=== PATIENT | female | born 1960 | race Hispanic/Latino ===

== ENCOUNTER → 2024-08-23 | Outpatient (CLI) | payer OTHER ==
--- NOTE | 2024-08-23 15:43 | HMCIMG ---
CT calcium scoring Clinical Information: SCREENING Comparison: None CT Dose Index (CTDI): 13.30 mGy Dose Length Product (DLP): 186.18 total mGy-cm Findings: Calcium score 0. No identifiable calcification. The CT scan is not a complete chest CT. Covered portion is reviewed for incidental findings. No incidental findings seen. IMPRESSION: Calcium score as above. Calcium score reference stable: 0: No identifiable calcification 1- 10: Minimal identifiable calcification 11-100: Mild calcification 101- 400: Moderate calcification 401 and above: Significant calcification Automated exposure control and adequate statistical iterative reconstructions were utilized as dose reduction techniques.
== END | disposition home or self-care (01) ==
LOC: RAH 14:04
PROVIDERS: ATTEND Internal Medicine Cardiovascular Disease
DX: Z13.6 Encounter for screening for cardiovascular disorders (principal)
CPT/HCPCS: 75571

== ENCOUNTER 2025-02-01 07:27 | Day surgery (SDC) | payer OTHER ==
[2025-01-30 14:12] LABS: IMMATURE GRANULOCYTE ABSOLUTE 0.03 K/uL (0-1); NUCLEATED RED BLOOD CELLS 0.0 % (0.0-0.19); PLATELET COUNT (AUTO) 192 K/uL (130-400); RED BLOOD CELL COUNT(AUTO) 4.28 MIL/uL (4.00-5.50); RED CELL DISTRIBUTION WIDTH 13.7 % (11.0-15.5); WHITE BLOOD COUNT (AUTO) 7.5 K/uL (4.8-10.8)
[2025-01-30 14:19] VITALS: BP 141/57; PULSE 71; RESP 14; TEMP 97.4
[2025-01-30 14:21] LABS: INR 1.02 (0.85-1.15)
--- NOTE | 2025-01-30 14:28 | EKG ---
[facility] Test Date: 2025-01-30 Test Time: 13:59:17 Pat Name: JAVAD HARRISON Department: Patient ID: [facility] [id number] Room: Gender: F Kineseologist: [id number] : 1960 Requested By: MARTHA BACH Order Number: [id number] Reading MD: Miguel Angel Bella Measurements Intervals [place] Rate: 71 P: 41 WV: 159 QRS: 1 QRSD: 85 T: 42 QT: 403 QTc: 437 Interpretive Statements Sinus rhythm Low voltage, precordial leads No previous ECG available for comparison Electronically Signed On 01-31-2025 16:33:31 CDT by Miguel Angel Bella Please click the below link to view image of tracing.
[2025-01-30 14:52] LABS: ASPARTATE AMINOTRANSFERASE 15.0 U/L (10-37); CREATININE 1.1 mg/dL (0.5-1.0); GLOMERULAR FILTR. RATE CALC 56.0 mL/min (>90); GLUCOSE,RANDOM 89.0 mg/dL (70-105); SODIUM SERUM 139.0 mmol/L (136-145); TOTAL PROTEIN, SERUM 8.2 g/dL (6.0-8.3); UREA NITROGEN, BLOOD 58.0 mg/dL (7-18)
[2025-02-01] VITALS (16 sets, daily range): BP systolic 110–128; BP diastolic 45–70; PULSE 71–96; RESP 14–18; TEMP 97–97.6
[~2025-02-01] VITALS: Ht 160 cm; Wt 124.3 kg
[~2025-02-01 07:27] MED LIST: ALLO100T PO; ASPI-1443 PO; CHOL500045 PO; LISI40TA15 PO; MAGN400T53 PO; MV-M1TAB57 PO; PHEN15CA61 PO; ROSU5TAB51 PO
[2025-02-01] MEDS ORDERED: LACTATED RINGERS 1000ML 1,000 ML IV ONE (07:31)
[2025-02-01] MEDS ORDERED: LIDOCAINE PF 100MG/5ML (2%) SYRINGE 5ML ONE (07:52)
[2025-02-01] MEDS ORDERED: MIDAZOLAM HCL 1 MG/ML 2ML VIAL ONE (07:53)
[2025-02-01] MEDS ORDERED: SUGAMMADEX SODIUM 200 MG/2 ML VIAL IV ONE (07:58)
[2025-02-01] MEDS ORDERED: SUCCINYLCHOLINE CHLORIDE 20 MG/ML 10 ML VIAL ONE (08:22)
[2025-02-01] MEDS ORDERED: GLYCOPYRROLATE 0.2 MG/ML 5 ML VIAL ONE (08:49)
[2025-02-01] MEDS ORDERED: INDOCYANINE GREEN 25 MG VIAL IJ ONE (10:20)
--- NOTE | 2025-02-01 11:38 | PN ---
GENERAL SURGERY PROGRESS NOTE Date/Time Patient Seen: [ 02/01/2025 at 11:30 a.m.] Problem List: [ ] Interval History: [Postop day 0. Pain tolerable with p.r.n. medication. ] Physical Examination: GENERAL: [No acute distress.] ABD: [Incisions clean, dry and intact, Dermabond in place Vital Signs (last 8hr) Date Time Temp Pulse Resp B/P (MAP) Pulse Ox O2 Delivery O2 Flow Rate FiO2 02/01/25 07:30 97.3 82 18 123/59 96 Room Air 21 Laboratory: [ ] Hematology Labs: Test 01/30/25 13:55 Range/Units White Blood Count 7.5 4.8-10.8 K/uL Red Blood Count 4.28 4.00-5.50 MIL/uL Hemoglobin 12.7 12.0-16.0 g/dL Hematocrit 39.1 36-48 % Mean Corpuscular Volume 91.4 79-99 fL Mean Corpuscular Hemoglobin 29.7 27.0-33.0 pg Mean Corpuscular Hemoglobin Concent 32.5 32.0-36.0 g/dL Red Cell Distribution Width 13.7 11.0-15.5 % Platelet Count 192 130-400 K/uL Mean Platelet Volume 12.8 H 7.5-10.5 fL Immature Granulocyte % (Auto) 0.4 0-1 % Neutrophils (%) (Auto) 70.8 40.0-77.0 % Lymphocytes (%) (Auto) 20.3 L 21.0-51.0 % Monocytes (%) (Auto) 6.9 3.0-13.0 % Eosinophils (%) (Auto) 1.1 0.0-8.0 % Basophils (%) (Auto) 0.5 0.0-5.0 % Neutrophils # (Auto) 5.3 1.8-7.7 K/uL Lymphocytes # (Auto) 1.5 1.0-4.8 K/uL Monocytes # (Auto) 0.5 0.1-1.0 K/uL Eosinophils # (Auto) 0.08 0.00-0.70 K/uL Basophils # (Auto) 0.04 0.00-0.20 K/uL Absolute Immature Granulocyte (auto 0.03 0-1 K/uL Nucleated Red Blood Cells 0.0 0.0-0.19 % Chemistry Labs: Test 01/30/25 13:55 Range/Units Sodium Level 139 136-145 mmol/L Potassium Level 4.4 3.5-5.1 mmol/L Chloride Level 104 101-111 mmol/L Carbon Dioxide Level 26 21-32 mmol/L Blood Urea Nitrogen 58 H 7-18 mg/dL Creatinine 1.1 H 0.5-1.0 mg/dL Glomerular Filtration Rate Calc 56 >90 mL/min Random Glucose 89 70-105 mg/dL Total Calcium 10.1 8.5-10.1 mg/dL Total Bilirubin 0.5 0.2-1.0 mg/dL Aspartate Amino Transf (AST/SGOT) 15 10-37 U/L Alanine Aminotransferase (ALT/SGPT) 23 12-78 U/L Alkaline Phosphatase 69 50-136 U/L Total Protein 8.2 6.0-8.3 g/dL Albumin 4.2 3.5-5.0 g/dL Coagulation Labs: Test 01/30/25 13:55 Range/Units Prothrombin Time 10.8 9.6-11.6 SEC Prothromb Time International Ratio 1.02 0.85-1.15 Activated Partial Thromboplast Time 25.9 L 26.3-35.5 SEC Diagnostics / Radiology: [Copy/Paste Echos/Imaging Report here] Impression and Plan: [ Plan is for discharge home in the next few hours as long as patient tolerating p.o., ambulatory and pain under control. Discussed with the patient and family. They understand and agree.] KACIE BACH PAC Feb 01, 2025 11:38
--- NOTE | 2025-02-01 11:40 | OP ---
Operative Note: DATE OF PROCEDURE: 02/01/25 SURGEON: MARTHA BACH MD OFFICE SUPPORT: Satya Bach MD Pa-c ANESTHESIA: General and local ANESTHESIOLOGIST/EXCEPTIONAL CHILDREN'S TEACHER: [facility] anesthesia team PREOPERATIVE DIAGNOSIS: Super morbid obesity, BMI greater than 50, possible hiatal hernia, associated comorbid conditions POSTOPERATIVE DIAGNOSIS: As above SYNOPSIS: Planned gastric bypass and hiatal hernia repair aborted due to findings of mass at the gallbladder fundus. Gallbladder resection undertaken after discussion with family and sent for pathologic inspection. PROCEDURE: 1. Aborted gastric bypass, hiatal hernia repair, EGD 2. Cholecystectomy with IC green cholangiogram 3. Core needle liver biopsy ESTIMATED BLOOD LOSS: Minimal, less than 30 cc INDICATIONS: As above DESCRIPTION OF PROCEDURE: After standard precautions for impressions were undertaken a Veress seen on optical trocar used into the abdominal cavity. All other instruments were placed under direct vision. The robotic system was docked in the standard fashion. During our cursory examination of the abdominal cavity we discovered that the patient had a large fungating fundal gallbladder mass. It was irregularly shaped with attachments to her by omentum. Due to the irregularity of the mass there is some concern that this may represent a malignancy. We spoke with the family to let them know that our plan was to abort the main procedures that were planned in lieu of a cholecystectomy and liver biopsy. They agreed that this was appropriate and we proceeded with this portion of the procedure. A critical view of safety was achieved by dissecting around the infundibulum and identified a single ductal and single vascular structure entering the infundibulum. Duct was extremely dilated probably greater than double the normal size. We utilized IC-Green infusion to illuminate the ductal system with our firefly visual technology. This was done in place of a traditional cholangiogram and allowed us to visualize the entirety of the ductal system including a common hepatic and common bile ducts with no signs of filling de fects. At this point we were able to ligate and divide are structures. The 1st clip on the gallbladder side of the cystic duct was placed and then a small ductotomy with return of clean bile was visualized. The remainder of the clips were placed. The gallbladder was placed in an Endo-Catch bag and removed from the abdominal cavity and sent for pathologic inspection. The initial pathologic inspection was unable to perform a frozen section due to the calcified nature of the mass. We also performed a core needle liver biopsy due to some irregularity in the size and contour of the liver. At the end of the case all instrument counts were verified as correct including needles and sponges. MARTHA BACH MD Feb 01, 2025 11:40
--- NOTE | 2025-02-01 13:10 | NUR ---
both pt and spouse given verbal and written discharge instructions. IV removed site asymptomatic. Pt asked if she needed assistance to change she told us no. Pt will be taken out to car via wheelchair
== END 2025-02-01 14:16 | disposition home or self-care (01) ==
LOC: UNDOADMIN 07:27 → DAH 07:27 → DAHIP 07:27 → DAH 14:16
PROVIDERS: ATTEND Surgery
DX: K83.8 Other specified diseases of biliary tract (principal); K80.20 Calculus of gallbladder without cholecystitis without obstruction; K76.89 Other specified diseases of liver; E66.01 Morbid (severe) obesity due to excess calories; K44.9 Diaphragmatic hernia without obstruction or gangrene; I12.9 Hypertensive chronic kidney disease with stage 1 through stage 4 chronic kidney disease, or unspecified chronic kidney disease; N18.30 Chronic kidney disease, stage 3 unspecified; K75.81 Nonalcoholic steatohepatitis (NASH); E78.5 Hyperlipidemia, unspecified; Z96.652 Presence of left artificial knee joint; Z90.710 Acquired absence of both cervix and uterus; Z79.899 Other long term (current) drug therapy; Z68.43 Body mass index [BMI] 50.0-59.9, adult
CPT/HCPCS: 80053; 85025; 85610; 85730; 86850; 86900; 86901; 36415; 93005; 47379; 47563; 88313; 88304; 88329; 88307; A6260; J1100; A4663; J7030; A4215 ×3; J7120; J3010 ×3; J0690 ×5; J0330; J0665 ×2; J3490 ×6; J2003; J2250; J2704; J2405; C1769; A4649; A4930; A4213; A4222; A4221; A4216; A4223 ×2; A4600